=== PATIENT | male | born 1985 | race African-American/Black ===

== ENCOUNTER 2020-10-13 08:46 | Emergency (ER) | payer OTHER, SELFPAY ==
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
[2020-10-13 09:11] VITALS: BP 117/87; PULSE 87; RESP 16; TEMP 36.3; O2SAT 95
[2020-10-14 17:45] LABS: SARS-CoV-2 RNA PCR Negative
== END 2020-10-13 09:58 | disposition home or self-care (01) ==
PROVIDERS: Emergency Provider Nurse Practitioner Family
DX: J06.9 Acute upper respiratory infection, unspecified (principal); Z20.822 Contact with and (suspected) exposure to COVID-19; F17.210 Nicotine dependence, cigarettes, uncomplicated
CPT/HCPCS: 71046; 99203; C9803; G0463; U0003; U0005

== ENCOUNTER 2021-03-06 17:07 | Emergency (ER) | payer OTHER, SELFPAY ==
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
== END 2021-03-06 17:52 | disposition home or self-care (01) ==
PROVIDERS: Emergency Provider Nurse Practitioner
DX: S46.912A Strain of unspecified muscle, fascia and tendon at shoulder and upper arm level, left arm, initial encounter (principal); X50.0XXA Overexertion from strenuous movement or load, initial encounter; Y99.0 Civilian activity done for income or pay; F17.210 Nicotine dependence, cigarettes, uncomplicated
CPT/HCPCS: 99213; G0463